=== PATIENT | female | born 1990 | race African-American/Black ===

== ENCOUNTER 2023-11-07 15:21 | Outpatient (CLI) | payer OTHER | END 2023-11-07 15:22 | disposition home or self-care (01) | LOC: CSHLAB 15:21 | PROVIDERS: ATTEND Obstetrics & Gynecology | DX: Z01.812 Encounter for preprocedural laboratory examination (principal); D25.9 Leiomyoma of uterus, unspecified; D64.9 Anemia, unspecified | CPT/HCPCS: 84703; 85027; 86850; 86900; 86901 ==

== ENCOUNTER 2023-11-08 11:40 | Day surgery (SDC) | payer OTHER ==
[2023-11-07 15:59] VITALS: BMI 37.4
[2023-11-07 16:33] LABS: Hematocrit 31.6 % (34.9-44.5); Hemoglobin 8.4 g/dL (12.0-15.5); Mean Corpuscular HGB CONC 26.6 g/dL (32.0-36.0); Mean Corpuscular Hemoglobin 18.5 pg (27.0-33.0); Mean Corpuscular Volume 69.8 fl (81.6-98.3); Mean Platelet Volume 9.5 fl (7.4-10.4); Platelet Count 336 10x3/uL (150-450); RBC Distribution Width 23.6 % (11.5-14.5); Red Blood Cell (RBC) Count 4.53 10x6/uL (3.90-5.03); White Blood Cell (WBC) Count 11.9 10x3/uL (3.5-10.5)
[2023-11-07 16:58] LABS: BHCG - Serum Negative (NEGATIVE); Pregs Control Background? CLEAR/WHITE (CLR/WHITE); Pregs Control Bar Appear? YES (CONTROL BAR)
[2023-11-08] MEDS ORDERED: CeleCOXIB 100 MG CAP ONE (11:46)
[2023-11-08] MEDS ORDERED: Gabapentin 300 MG CAP ONE (11:47)
[2023-11-08] MEDS ORDERED: metroNIDAZOLE 500 MG/100 ML BAG ONE (11:47)
[2023-11-08] MEDS ORDERED: Famotidine/PF 20 mg/2ml Vial ONE (11:47)
[2023-11-08] MEDS ORDERED: Rocuronium Bromide 10 MG/ML (10ML VIAL) ONE (12:28)
[2023-11-08] MEDS ORDERED: Fentanyl 250 MCG/5 ML VIAL ONE (12:28)
[2023-11-08] MEDS ORDERED: PROPOFOL 20 ML ONE ×2 (12:28→12:29)
[2023-11-08] MEDS ORDERED: Dexamethasone 20 MG/5 ML VIAL ONE (12:28)
[2023-11-08] MEDS ORDERED: Ondansetron PF 4 MG/2 ML Vial ONE (12:28)
[2023-11-08] MEDS ORDERED: Lidocaine 2% PF 5 ML VIAL ONE (12:28)
[2023-11-08] MEDS ORDERED: Bupivacaine PF 0.5% 30 ML VIAL ONE (12:29)
[2023-11-08] MEDS ORDERED: EPINEPHrine 1 MG/ML VIAL ONE (12:29)
[2023-11-08] MEDS ORDERED: Midazolam HCl 2 mg/2 ml Vial ONE (12:36)
[2023-11-08] MEDS ORDERED: CEFAZOLIN 2 GM VIAL ONE (12:43)
[2023-11-08] MEDS ORDERED: Meperidine HCl/PF 25 MG/ML VIAL ONE (13:41)
[2023-11-08] MEDS ORDERED: Glycopyrrolate 0.2 MG/ML 5 ML SYRINGE ONE (14:06)
[2023-11-08] MEDS ORDERED: SUGAMMADEX SODIUM 200 MG/2 ML VIAL ONE (14:06)
[2023-11-08] MEDS ORDERED: Albuterol HFA (OR) 200 PUFF INH ONE (14:08)
[2023-11-08] MEDS ORDERED: fentaNYL 50 mcg/mL 1 mL Vial ONE (14:17)
[2023-11-08] MEDS ORDERED: HYDROcodone/Acetaminophen 5/325 mg Tablet ONE (16:04)
== END 2023-11-08 17:05 | disposition home or self-care (01) ==
LOC: CSHSDC 11:40
PROVIDERS: ATTEND Obstetrics & Gynecology
PROC: 0UT94ZZ Resection of Uterus, Percutaneous Endoscopic Approach (ICD-10-PCS; principal; 2023-11-08)
DX: D25.9 Leiomyoma of uterus, unspecified (principal); D64.9 Anemia, unspecified; N73.6 Female pelvic peritoneal adhesions (postinfective); N92.0 Excessive and frequent menstruation with regular cycle; J45.909 Unspecified asthma, uncomplicated; Z79.899 Other long term (current) drug therapy
CPT/HCPCS: 84703; 85027; 86850; 86900; 86901; 88307; C9250; J0171; J1100; J2001; J2175; J2250; J2405; J2704; J3010; S0020; S0028